=== PATIENT | male | born 1980 | race American Indian/Alaskan Native ===

== ENCOUNTER 2020-11-04 18:28 | Emergency (ER) | payer OTHER ==
[2020-11-04 19:27] VITALS: BP 133/95
--- NOTE | 2020-11-04 19:32 | Event Note ---
ED Screening Note ED Screening Note: lac finger This initial assessment/diagnostic orders/clinical plan/treatment(s) is/are subject to change based on patients health status, clinical progression and re- assessment by fellow clinical providers in the ED. Further treatment and workup at subsequent clinical providers discretion. Patient/guardian urged not to elope from the ED as their condition may be serious if not clinically assessed and managed. Initial orders include: wound care tdap
--- NOTE | 2020-11-04 19:36 | Emergency Department Report ---
ED Laceration HPI - HPI Chief Complaint: Wound/Laceration Stated Complaint: FINGER LAC Time Seen by Provider: 11/04/20 19:31 Occurred When: Today Location: Upper Extremity Severity: mild Tetanus Status: Not up to Date Laceration Symptoms: Yes Pain, No Foreign Body Sensation, No Numbness, No Weakness Other History: To er sp cutting right 5th finger with razor today at work. Neurovasc intact and bleeding controlled. Full ROM. No other injury. needs tdap. Pt has DM ED Review of Systems ROS: Stated complaint: FINGER LAC Other details as noted in HPI Comment: All other systems reviewed and negative ED Past Medical Hx - Past Medical History Previous Medical History?: Yes Hx Diabetes: Yes - Surgical History Past Surgical History?: No - Family History Family history: no significant - Social History Smoking Status: Current Every Day Smoker Substance Use Type: Marijuana - Medications Home Medications: Home Medications Medication Instructions Recorded Confirmed Last Taken Type cephALEXin [Keflex] 500 mg PO Q12HR #20 cap 11/04/20 Unknown Rx Laceration Physical Exam - Exam General: Vital signs noted. No distress. Alert and acting appropriately. Laceration Location: Upper Extremity Laceration Exam: Yes Normal Distal CMS, No Foreign Body, No Exposed Tendon, Vessel, or Nerve, No Tendon Injury ED Course Vital Signs 11/04/20 19:25 Temperature 98.6 F Pulse Rate 68 Respiratory 16 Rate Blood Pressure 133/95 O2 Sat by Pulse 99 Oximetry - Laceration /Wound Repair finger Wound Location: upper extremity Wound Length (cm): 3 Wound's Depth, Shape: superficial Wound Explored: no foreign body removed Irrigated w/ Saline (ccs): 100 Betadine Prep?: Yes Wound Repaired With: Steri-strips, Dermabond Number of Sutures: 0 Layer Closure?: No Sterile Dressing Applied?: Yes Progress: tolerated well ED Medical Decision Making - Medical Decision Making simple lac tdap given medicated for pain keflex po wound care cleaned and repaired per procedure note neurovasc intact rapid cap refill superficial wound dc home with wound care instructions. Verbalizes understanding of care. Will take keflex until gone. Verbalizes understanding of symptoms of infection. On dc ambulatory and non ill appearing Vital Signs 11/04/20 19:25 Temperature 98.6 F Pulse Rate 68 Respiratory 16 Rate Blood Pressure 133/95 O2 Sat by Pulse 99 Oximetry - Differential Diagnosis laceration Critical care attestation.: If time is entered above; I have spent that time in minutes in the direct care of this critically ill patient, excluding procedure time. ED Disposition Clinical Impression: Laceration of finger Disposition: DC-01 TO HOME OR SELFCARE Is pt being admited?: No Does the pt Need Aspirin: No Condition: Stable Instructions: Wound Care, Adult Additional Instructions: ICE for pain tonight motrin or tylenol over the counter antibiotic as ordered tdap given today wound care as we discussed follow up with pcp in 1 week to be sure it is healing Prescriptions: cephALEXin [Keflex] 500 mg PO Q12HR #20 cap Referrals: STACIE HARMAN MD [Staff Physician] - 3-5 Days Forms: Work/School Release Form(ED) Time of Disposition: 19:43
[2020-11-04] MEDS ORDERED: TETANUS,DIPH,PERTUSS(ACELL) VACCINE 0.5 ML SYRINGE IM ONE (19:42)
[2020-11-04] MEDS ORDERED: HYDROcodone/ACETAMINOPHEN 5-325 MG TAB PO ONE (19:42)
[2020-11-04] MEDS ORDERED: cephALEXin 500 MG CAP PO ONE (19:42)
== END 2020-11-04 20:05 | disposition home or self-care (01) ==
LOC: ED 18:28
DX: S61.216A Laceration without foreign body of right little finger without damage to nail, initial encounter (principal); E11.9 Type 2 diabetes mellitus without complications; F17.200 Nicotine dependence, unspecified, uncomplicated; F12.10 Cannabis abuse, uncomplicated; Z79.899 Other long term (current) drug therapy; X58.XXXA Exposure to other specified factors, initial encounter; Y93.89 Activity, other specified; Y92.89 Other specified places as the place of occurrence of the external cause; Y99.8 Other external cause status
CPT/HCPCS: 90471; 90715